=== PATIENT | female | born 1955 | race Caucasian/White ===

== ENCOUNTER 2019-05-09 05:15 | Observation (INO) | payer MEDICARE ==
[~2019-05-09] VITALS: Ht 165.1 cm; Wt 84.5 kg
--- NOTE | 2019-05-09 05:35 | NUR ---
chest xray completed
[2019-05-09 06:06] LABS: BASOPHILS # (AUTO) 0.1 X10'3 (0-0.2); EOSINOPHILS # (AUTO) 0.4 X10'3 (0-0.9); EOSINOPHILS % (AUTO) 6.1 % (0-6); HEMATOCRIT 36.5 % (35.0-45.0); HEMOGLOBIN 12.4 g/dl (12.0-16.0); LYMPHOCYTES # (AUTO) 2.2 X10'3 (1.1-4.8); LYMPHOCYTES % (AUTO) 31.7 % (21-51); MEAN CORPUSCULAR VOLUME 91.1 FL (78-98); MEAN PLATELET VOLUME 6.5 FL (7.4-10.4); MONOCYTES # (AUTO) 0.5 X10'3 (0-0.9); MONOCYTES % (AUTO) 7.1 % (2-12); NEUTROPHILS # (AUTO) 3.7 X10'3 (1.8-7.7); NEUTROPHILS % (AUTO) 54.1 % (42-75); PLATELET COUNT 234 X10'3 (140-440); RED CELL DISTRIBUTION WIDTH 12.8 % (11.5-14.5); WHITE BLOOD COUNT 6.8 X10'3 (4.5-11.0)
[2019-05-09 06:10] LABS: PARTIAL THROMBOPLASTIN TIME 24 SECONDS (22-32)
[2019-05-09 06:20] LABS: ALANINE AMINOTRANSFERASE 36 U/L (12-78); ALBUMIN 3.7 G/DL (3.4-5.0); ALBUMIN/GLOBULIN RATIO 1.2 (1.1-1.5); ALKALINE PHOSPHATASE 101 IU/L (46-116); ANION GAP 10 (8-16); ASPARTATE AMINO TRANSFERASE 25 U/L (10-37); BILIRUBIN,TOTAL 0.7 MG/DL (0.1-1.0); BLOOD UREA NITROGEN 16 MG/DL (7-18); BUN/CREATININE RATIO 23.5 (6.6-38.0); CALCIUM 8.6 MG/DL (8.5-10.1); CHLORIDE 106 MMOL/L (99-107); CREATININE 0.68 MG/DL (0.40-0.90); GLUCOSE 121 MG/DL (70-104); POTASSIUM 3.6 MMOL/L (3.5-5.1); SODIUM 143 MMOL/L (135-145); TOTAL CARBON DIOXIDE 27.1 MMOL/L (24-32); TOTAL PROTEIN 6.8 G/DL (6.4-8.2); eGFR 87 ML/MIN
[2019-05-09 06:47] LABS: CLARITY,URINE SLIGHTLY CLOUDY (Clear); COLOR,URINE ORANGE (Yellow); UA COLLECTION TYPE STRAIGHT CATH
[2019-05-09 06:48] LABS: MUCUS STRANDS MODERATE /LPF (Neg); SQUAMOUS EPITHELIAL CELL,UR FEW /LPF (FEW)
[2019-05-09 06:50] LABS: BACTERIA,URINE FEW /HPF (Neg); FINE GRANULAR CAST 0-3 /LPF (NEGATIVE); HYALINE CASTS 0-3 /LPF (NEGATIVE); RBC,URINE 0-2 /HPF (0-2); RENAL CELLS, URINE FEW /HPF; TRANSITIONAL EPI CELLS,URINE FEW /HPF; WBC,URINE 0-4 /HPF (0-4)
[2019-05-09] MEDS ORDERED: magnesium hydroxide 30ml (MOM) UD suspension PO PRN (08:50)
[2019-05-09] MEDS ORDERED: magnesium 2GM in 50ml NS 50 ML IV PRN (08:50)
[2019-05-09] MEDS ORDERED: magnesium 4gm in 100ml NS 100 ML IV PRN (08:50)
[2019-05-09] MEDS ORDERED: mag hydrox/Alum hydrox/simeth 30ml oral suspension PO PRN (08:50)
[2019-05-09] MEDS ORDERED: magnesium Cl slow-release 64mg tablet PO PRN (08:50)
[2019-05-09] MEDS ORDERED: potassium Cl 20 mEq SR tablet PO PRN ×2 (08:50)
[2019-05-09] MEDS ORDERED: metoclopramide 5 mg/ml inj IV PRN (08:50)
[2019-05-09] MEDS ORDERED: acetaminophen 325mg tablet PO PRN (08:50)
[2019-05-09] MEDS ORDERED: potassium CL 10mEq/100ml bag 100 ML IV PRN ×2 (08:50)
[2019-05-09] MEDS ORDERED: ondansetron/PF 4mg/2ml inj IV PRN (08:50)
[2019-05-09] MEDS ORDERED: bisacodyl 10mg suppository rectal RC PRN (08:50)
[2019-05-09] MEDS ORDERED: LYR25C PO (08:54)
[2019-05-09] MEDS ORDERED: DIPH25CA83 PO (08:54)
[2019-05-09] MEDS ORDERED: ERGO500014 PO (08:54)
[2019-05-09 09:18] LABS: MAGNESIUM 1.9 MG/DL (1.5-2.4); PHOSPHORUS 3.5 MG/DL (2.3-4.5)
[2019-05-09] MEDS: normal saline 1000ml 1,000 ML IV SCH ×2 (09:42→21:10)
--- NOTE | 2019-05-09 09:55 | NUR ---
Patient admitted to room 3015A. Oriented to room, patient stable, and patient has no complaints. Vital signs BP 105/64, HR 68, RR 16, O2 95 RA. 2 RN skin assessment done, patient tele box initiated, and MRSA nasal swab obtained. Will continue to monitor
[2019-05-09 11:00] VITALS: BP 126/58
--- NOTE | 2019-05-09 11:29 | NUR ---
Received report from Jacqueline KNOX in the ED. All questions answered, and patient will be admitted to room [facility]. Addendum: 05/09/19 at 1129 by Julia Aviles RN CORRECT TIME: [id number]
[2019-05-09] MEDS: acetaminophen 325mg tablet PO PRN (11:46)
[2019-05-09 11:53] VITALS: BP_SYST 110; BP_SYST 117; BP_SYST 98; BP_DIAS 54; BP_DIAS 69; BP_DIAS 76
[2019-05-09] MEDS ORDERED: LIDOCAINE PATCH (14:42)
[2019-05-09 15:00] VITALS: BP 104/55
--- NOTE | 2019-05-09 15:48 | NUR ---
Paged Vascular RE Nargis Payan. [id number]. New order from this AM from for VL Carotids. Thank you!
[2019-05-09] MEDS ORDERED: LIDO700A47 PO (15:55)
--- NOTE | 2019-05-09 18:03 | NUR ---
Pt provided PCP information: Dr Aretha Mcfarlane [phone] [place], [place]
[2019-05-09] MEDS ORDERED: aminophylline 250mg/10ml inj. IV PRN (18:30)
[2019-05-09] MEDS ORDERED: metoprolol tartrate 1mg/ml inj IV PRN (18:30)
[2019-05-09] MEDS ORDERED: nitroGLYCERIN 0.4mg SUBLingual tab SL PRN (18:30)
[2019-05-09] MEDS ORDERED: regadenoson 0.4mg/5ml syringe IV ONE (18:30)
--- NOTE | 2019-05-09 18:31 | NUR ---
Problems reprioritized. Patient report given, questions answered & plan of care reviewed with Jimena KNOX.
--- NOTE | 2019-05-09 18:43 | NUR ---
Patient in room PCU 3015. I have received report from Julia KNOX and had the opportunity to ask questions and assume patient care.
[2019-05-09 19:00] VITALS: BP 122/72
[2019-05-09] MEDS ORDERED: regadenoson 0.4mg/5ml syringe IV PRN (19:05)
[2019-05-09 22:00] VITALS: BP_SYST 122; BP_SYST 128; BP_DIAS 69; BP_DIAS 72
[2019-05-09 23:00] VITALS: BP 121/66
[2019-05-10] VITALS (15 sets, daily range): BP systolic 96–134; BP diastolic 56–74
[2019-05-10 05:40] LABS: HEMATOCRIT 36.2 % (35.0-45.0); HEMOGLOBIN 12.4 g/dl (12.0-16.0); MEAN CORPUSCULAR HEMOGLOBIN 31.5 PG (27.0-31.0); MEAN CORPUSCULAR HGB CONC 34.4 g/dL (33.0-36.5); MEAN CORPUSCULAR VOLUME 91.6 FL (78-98); MEAN PLATELET VOLUME 6.7 FL (7.4-10.4); PLATELET COUNT 237 X10'3 (140-440); RED BLOOD COUNT 3.95 X10'6 (4.20-5.60); RED CELL DISTRIBUTION WIDTH 12.9 % (11.5-14.5); WHITE BLOOD COUNT 5.5 X10'3 (4.5-11.0)
--- NOTE | 2019-05-10 06:19 | NUR ---
Problems reprioritized. Patient report given, questions answered & plan of care reviewed with Rashaad KNOX.
[2019-05-10 06:22] LABS: ALBUMIN 3.2 G/DL (3.4-5.0); ANION GAP 8 (8-16); BLOOD UREA NITROGEN 10 MG/DL (7-18); BUN/CREATININE RATIO 18.2 (6.6-38.0); CALCIUM 8.3 MG/DL (8.5-10.1); CHLORIDE 112 MMOL/L (99-107); CHOL/HDL RATIO 3.3 (0.00-4.99); CHOLESTEROL 157 MG/DL (0-200); CREATININE 0.55 MG/DL (0.40-0.90); GLUCOSE 102 MG/DL (70-104); HDL CHOLESTEROL 48 MG/DL (35-60); LDL CHOLESTEROL 102 MG/DL (50-100); MAGNESIUM 2.1 MG/DL (1.5-2.4); PHOSPHORUS 3.3 MG/DL (2.3-4.5); POTASSIUM 3.9 MMOL/L (3.5-5.1); SODIUM 146 MMOL/L (135-145); TOTAL CARBON DIOXIDE 25.6 MMOL/L (24-32); TRIGLYCERIDES 54 MG/DL (20-135); eGFR > 90 ML/MIN
--- NOTE | 2019-05-10 06:43 | NUR ---
Patient in room PCU 3015. I have received report from Jimena KNOX and had the opportunity to ask questions and assume patient care. Pt is in bed sleeping, will continue to monitor.
[2019-05-10] MEDS: normal saline 1000ml 1,000 ML IV SCH (07:27)
[2019-05-10] MEDS ORDERED: enoxaparin 40mg/0.4ml syringe SUBCUT SCH (08:00)
[2019-05-10] MEDS ORDERED: K and/or MAG REPLACEMENT MC SCH (08:00)
[2019-05-10] MEDS ORDERED: atorvastatin 20mg tablet PO SCH (09:00)
[2019-05-10] MEDS: acetaminophen 325mg tablet PO PRN (09:47)
--- NOTE | 2019-05-10 10:15 | NUR ---
Spoke w/ PT and they state she is walking per baseline and will be discharging her to Nursing for daily ambulations
--- NOTE | 2019-05-10 10:15 | NUR ---
Pt is picked up to MRI via w/c w/ hospital staff
--- NOTE | 2019-05-10 11:00 | NUR ---
P returns from MRI
--- NOTE | 2019-05-10 13:53 | NUR ---
Pt wheeled down to [facility] for stress test w/ hospital staff
[2019-05-10] MEDS ORDERED: ASPI-611 PO (16:46)
[2019-05-10] MEDS ORDERED: ATOR20TA66 PO (16:46)
--- NOTE | 2019-05-10 16:49 | NUR ---
Received orders for discharge however pt will stay until 1999 d/t delicia, charge nurse/ aware, OK to be off playground monitor per Dr. Asif
--- NOTE | 2019-05-10 18:21 | NUR ---
Problems reprioritized. Patient report given, questions answered & plan of care reviewed with Ramandeep KNOX.
--- NOTE | 2019-05-10 18:44 | NUR ---
Patient in room PCU 3015. I have received report from Rashaad KNOX and had the opportunity to ask questions and assume patient care. Patient is visiting with her friend awaiting discharge.
--- NOTE | 2019-05-10 19:07 | NUR ---
Patient discharged per Dr. choudhary. Telemetry and IV removed (cannula intact), patient is alert and oriented and all vital signs are stable. Friend at bedside that will transport her to the pharmacy and then home. Patient is ambulatory but was wheeled down to lobby by [facility], all her belongings are with her.
== END 2019-05-10 19:00 | disposition home or self-care (01) ==
LOC: ER 05:16 → PCU 3S 10:06
PROVIDERS: ADMIT Family Medicine; ATTEND Family Medicine
DX: R55 Syncope and collapse (principal); I20.9 Angina pectoris, unspecified; E78.5 Hyperlipidemia, unspecified; E87.0 Hyperosmolality and hypernatremia; H54.61 Unqualified visual loss, right eye, normal vision left eye; M79.7 Fibromyalgia; Z90.49 Acquired absence of other specified parts of digestive tract; F32.9 Major depressive disorder, single episode, unspecified; I95.9 Hypotension, unspecified; R07.2 Precordial pain; G89.29 Other chronic pain; Z79.82 Long term (current) use of aspirin; Z79.899 Other long term (current) drug therapy; Z88.5 Allergy status to narcotic agent
CPT/HCPCS: 36415; 70450; 70544; 70551; 71045; 78452; 80048; 80053; 80061; 81001; 83735; 83880; 84100; 84443; 84484; 85025; 85027; 85610; 85730; 87081; 93005; 93017; 93306; 93880; 96361; 96372; 96374; 97116; 97161; 99284; A9500; G0378; J0280; J2785; J7030; J1650